=== PATIENT | female | born 1995 | race Two or more races ===

== ENCOUNTER 2017-09-11 22:20 | Emergency (ER) | payer MEDICAID ==
[~2017-09-11] VITALS: Ht 160 cm; Wt 87.7 kg
[2017-09-11 22:42] VITALS: BP 131/86
== END 2017-09-11 23:17 | disposition left against medical advice (07) ==
LOC: ER 22:20
DX: T78.40XA Allergy, unspecified, initial encounter (principal); Z53.21 Procedure and treatment not carried out due to patient leaving prior to being seen by health care provider